=== PATIENT | female | born 1965 | race Hispanic/Latino ===

== ENCOUNTER 2022-12-24 04:03 | Emergency (ER) | payer OTHER ==
[~2022-12-24] VITALS: Ht 154.9 cm; Wt 70.3 kg
[2022-12-24] MEDS: SODIUM CHLORIDE 0.9% 1000ML 1,000 ML IV SCH ×2 (04:29→04:30)
[2022-12-24] MEDS ORDERED: SODIUM CHLORIDE 0.9% 1000ML 2,000 ML IV STA (04:30)
[2022-12-24 04:38] LABS: BASOPHILS % 0.5 % (0.0-1.0); EOSINOPHILS % 0.7 % (0.0-6.0); HEMATOCRIT 41.2 % (34.2-44.1); HEMOGLOBIN 14.5 g/dL (12.0-16.0); LYMPHOCYTES # (AUTO) 1.6 (1.0-3.2); LYMPHOCYTES % 25.6 % (18.0-39.1); MEAN CORPUSCULAR HEMOGLOBIN 31.5 pg (28-32); MEAN CORPUSCULAR HGB CONC 35.2 g/dL (31-35); MEAN CORPUSCULAR VOLUME 89.4 fL (81-99); MONOCYTES # (AUTO) 0.4 (0.2-0.8); MONOCYTES % 6.4 % (4.4-11.3); NEUTROPHILS # (AUTO) 4.1 (2.1-6.9); NEUTROPHILS % 66.5 % (38.7-80.0); PLATELET COUNT 431 x10e3/uL (140-360); RED BLOOD COUNT 4.61 x10e6/uL (3.6-5.1); RED CELL DISTRIBUTION WIDTH 13.8 % (11.7-14.4)
[2022-12-24] MEDS ORDERED: PROMETHAZINE HCL (IM) 25 MG/ML VIAL IM ONE (04:38)
[2022-12-24] MEDS ORDERED: SODIUM CHLORIDE 0.9% 100 ML ONE (04:43)
[2022-12-24] MEDS ORDERED: PROMETHAZINE 25MG/ NS 50ML (IV) IV ONE (04:45)
[2022-12-24 04:56] LABS: ALBUMIN 4.4 g/dL (3.5-5.0); ALBUMIN/GLOBULIN RATIO 1.3 (0.8-2.0); ANION GAP 15.8 mmol/L (8-16); CALCIUM 9.9 mg/dL (8.4-10.2); CREATININE, SERUM 0.73 mg/dL (0.57-1.11); POTASSIUM 3.8 mmol/L (3.5-5.1)
[2022-12-24 05:42] VITALS: BP 137/63; PULSE 84; RESP 19; TEMP 98.9; O2SAT 98
[2022-12-24] MEDS ORDERED: PANTOPRAZOLE SO40 MG PO (05:42)
[2022-12-24] MEDS ORDERED: PROMETHAZINE HC25 M1 PO (05:42)
== END 2022-12-24 05:54 | disposition home or self-care (01) ==
LOC: ER 04:12
DX: R10.30 Lower abdominal pain, unspecified (principal); R11.2 Nausea with vomiting, unspecified; R19.7 Diarrhea, unspecified; F41.9 Anxiety disorder, unspecified
CPT/HCPCS: 36415; 80053; 83690; 85025; 93005; 99283; C9113; J2550; J7030; J7050